=== PATIENT | female | born 1930 | race African-American/Black ===

== ENCOUNTER 2019-08-23 16:56 | Inpatient (IN) | payer OTHER ==
[~2019-08-23] VITALS: Ht 162.6 cm; Wt 54.1 kg
--- NOTE | ~2019-08-23 | HC ---
[facility] [place] [address] CONSULTATION Name: TRENTON LOPEZ Room #: 245-P ADM IN M.R.#: [id number] Admission: 08/23/19 Attend Phys: Rob Gabriel MD Discharge: Date of : [birth year] Report #: [id number] THIS REPORT FOR: //name// CC: Rob Gallegoskjaiden REASON FOR CONSULTATION: ESRD. REASON FOR THE PRESENTATION: Post arrest. HISTORY OF PRESENT ILLNESS: Those were obtained from the chart. The patient is currently intubated. Limited history due to her current mental status. She is an 88-year-old with end-stage renal disease, maintained on hemodialysis. She is known to have hypertension, coronary artery disease. She is status post pacemaker. She is also known to have chronic ulcers on her lower extremities. She presented from [facility] post-cardiac arrest for 45 minutes. Nursing staff initiated CPR. When the EMS arrived, she was in V-fib, shock was initiated and CPR was continued. Downtime was reported to be 45 minutes. She is currently intubated. I was asked to evaluate her dialysis need. PAST MEDICAL HISTORY: 1. End-stage renal disease. 2. Coronary artery disease. 3. Gout. 4. Post pacemaker. 5. Seizure disorder. Those were obtained from medical records. 6. Cognitive deficit. 7. Chronic ulcers on the lower extremities. REVIEW OF SYSTEMS: Unobtainable given the patient's current mental status. FAMILY HISTORY: Unobtainable given the patient's current mental status. PAST SURGICAL HISTORY: Right AV fistula; otherwise, unobtainable given the patient's current mental status. ALLERGIES: NUMEROUS ALLERGIES LISTED INCLUDING PENICILLIN. REST IS LISTED IN THE MEDICAL CHART. GROUP HOME MEDICATIONS: 1. Losartan. 2. Aspirin. 3. Keppra. 4. Sensipar. 5. Metoprolol. PHYSICAL EXAMINATION: [facility] [address] [address] CONSULTATION Name: TRENTON LOPEZ Room #: 245-P ADM IN ..#: [id number] Admission: 08/23/19 Attend Phys: Rob Gabriel MD Discharge: Date of : [birth year] Report #: [id number] GENERAL: The patient is currently intubated and sedated. VITAL SIGNS: Blood pressure is 111/49. HEAD AND NECK: ET tube in place. CHEST: Decreased air entry bilaterally. CARDIOVASCULAR: No rub detected. ABDOMEN: Soft, nontender. LOWER EXTREMITIES: Chronic edema. I did not examine her ulcers or wounds. LABORATORY DATA: Reviewed. White blood cell count is 11.2. This was 16,000 yesterday. Sodium is 141, potassium is 4.4, BUN is 26, creatinine is 3.9. Troponin is 2.003. Chest x-ray was consistent with interstitial pulmonary edema with a moderate size pneumothorax. IMPRESSION AND PLAN: 1. End-stage renal disease. 2. Post-cardiac arrest. 3. Pneumothorax. 4. Pacemaker. 5. From the renal perspective, the patient is well dialyzed and she received her dialysis yesterday. Next dialysis will be done tomorrow. 6. Cardiac arrest care. 7. Pulmonary following regarding her pneumothorax and her intubation status 8. Seizure disorder. 9. Overall, very grim prognosis. We will continue to follow. By: [id number] Joyce Rodriguez MD /nt
[2019-08-23 16:58] VITALS: BP 212/97
[2019-08-23 17:31] LABS: HCO3 23.1 mmol/L (22.0-26.0); PCO2 36.4 mmHg (35.0-45.0); PO2 259.3 mmHg (80.0-100.0); pH 7.421 (7.360-7.450); sO2 99.6 % (92.0-98.0)
[2019-08-23 18:24] LABS: HEMOGLOBIN 10.4 gm/dL (12.0-15.0); MCH 27.6 pg (26.0-34.0); MCHC 31.6 g/dL (28.0-37.0); MCV 87.5 fL (80.0-100.0); PLATELET COUNT 203 thou/uL (150-400); RBC 3.77 mil/uL (4.20-5.00); RDW 18.3 % (10.5-14.5)
[2019-08-23 18:38] LABS: CALCIUM 8.9 mg/dL (8.5-10.1); CREATININE 3.3 mg/dL (0.6-1.0); POTASSIUM 3.7 mmol/L (3.5-5.1)
[2019-08-23 18:48] LABS: ALBUMIN 2.7 g/dL (3.4-5.0); DIRECT BILIRUBIN 0.1 mg/dL (<0.1-0.2); TOTAL BILIRUBIN 0.6 mg/dL (<0.1-1.0); TOTAL PROTEIN 6.5 g/dL (6.4-8.2)
[2019-08-23 18:49] LABS: TROPONIN-I 0.83 ng/mL (<0.06)
--- NOTE | 2019-08-23 18:51 | NUR ---
VASCULAR ACCESS CONSULTED FOR PICC, PT IS DIALYSIS PT SO CVAD MORE APPROPRIATE. DISCUSSED WITH DR ADAIR PT HAS R DIALYSIS FISTULA AND LEFT PACEMEKER. CENTRAL LINE NEEDED POST CODE, LEFT IJ WAS WIDELY PATENT WITH USG. 6FR 25CM JACC INSERTED TO 6CM EXTERNAL STAT CXR DONE SHOWED CURLED GOING UP INTO JUGULAR. POWER FLUSHED AND REPOSITIONED. 2ND CXR SHOWS IN JUNCTION OF INNOMINATE VEIN AND SVC. RELEASED FOR IMMEDIATE USE BUT RECOMMENDED FOR IR TO POSIBLY REPLACE UNDER FLOURO IN AM TO DR NAQVI. LABS DRAWN
[2019-08-23 19:00] LABS: APTT 32.2 Seconds (24.5-32.8); INR 1.3; PROTIME 12.9 Seconds (9.3-11.4)
[2019-08-23 19:15] VITALS: BP 148/72
[2019-08-23 19:22] LABS: ABSOLUTE NEUTROPHILS 14.7 thou/uL (1.4-8.2); BURR CELLS FEW
[2019-08-23 19:23] LABS: ANISOCYTOSIS 2+; PLATELET ESTIMATE NORMAL; POIKILOCYTOSIS 1+
[2019-08-24 01:36] VITALS: BP 152/68
[2019-08-24 02:01] VITALS: BP 168/55
[2019-08-24 04:01] VITALS: BP 115/51
[2019-08-24 05:01] VITALS: BP 112/49
[2019-08-24] MEDS ORDERED: ALLOPURINOL 10100 M3 PO (05:26)
[2019-08-24] MEDS ORDERED: ASPIR 8181 M1 PO (05:27)
[2019-08-24] MEDS ORDERED: SENSIPAR 30 MG30 M1 PO (05:30)
[2019-08-24] MEDS ORDERED: PLAVIX 75 MG TA75 MG PO (05:33)
[2019-08-24] MEDS ORDERED: COZAAR 25 MG TA25 M2 PO (05:35)
[2019-08-24] MEDS ORDERED: KEPPRA250 MG PO (05:36)
[2019-08-24] MEDS ORDERED: LIDOCAINE 4% K1 EACH TOP (05:38)
[2019-08-24] MEDS ORDERED: TOPROL XL100 MG PO (05:39)
[2019-08-24] MEDS ORDERED: NEPHRO-VITE RX1 TA1 PO (05:40)
[2019-08-24] MEDS ORDERED: AKWA TEARS EYE15 ML EA. EYE (05:42)
[2019-08-24] MEDS ORDERED: RENVELA0.8 GM PO (05:43)
[2019-08-24] MEDS ORDERED: TYLENOL325 MG PO (05:45)
--- NOTE | 2019-08-24 05:46 | NUR ---
Pt is a [facility] that was nonresponsive and was found pulseless/slumping in her W/C, for possibly as long as 45 minutes. She was coded, intubated by EMS and brought to [facility], where family asked why she was intubated. Paperwork was retrieved that showed pt should have been considered a DNR, so hypothermia was stopped before it was started. Pt is nonresponsive, she does open her eyes, but does not track and there is NO corneal reflex, right pupil is sluggish and the left is cloudy with acataract noted. Her extremities are flaccid, she has not required restraints and is not on any sedation. Monitor reads 50-75% V-Paced, PAC's/BBB, mild HTN at times, afebrile. Lungs are coarse, on ventilator, was tachypneic earlier when the 7.0 ETT was kinking, RT remedied this, RR now at 16, good sats on 40% Bilateral great toes have gauze dressings for old, no pressure areas of concern. Case mgmt may need to discuss DPOA with family, there are copies of two different forms, with two different individuals on them.
[2019-08-24 06:38] LABS: HEMATOCRIT 30.9 % (37.0-47.0); HEMOGLOBIN 9.8 gm/dL (12.0-15.0); MCH 27.7 pg (26.0-34.0); MCHC 31.7 g/dL (28.0-37.0); MCV 87.3 fL (80.0-100.0); RBC 3.53 mil/uL (4.20-5.00); RDW 18.1 % (10.5-14.5); WBC 11.2 thou/uL (4.0-11.0)
[2019-08-24 06:53] LABS: CALCIUM 9.1 mg/dL (8.5-10.1); CREATININE 3.9 mg/dL (0.6-1.0); POTASSIUM 4.4 mmol/L (3.5-5.1)
--- NOTE | 2019-08-24 07:54 | EKG ---
[address] [place] [address] ELECTROCARDIOGRAM REPORT Name: TRENTON LOPEZ Room #: 245-P ADM IN M.R.#: [id number] Admission: 08/23/19 Attend Phys: Rob Gabriel MD Discharge: Date of : [birth year] Report #: [id number] THIS REPORT FOR: //name// [facility] ED Test Date: 2019-08-23 Test Time: 17:01:18 Pat Name: TRENTON LOPEZ Department: Room: [facility] Gender: F Finance Clerk: SILVINO : 1930 Requested By: Sri Arias Order Number: [id number] MD: Sha Mohan Measurements Intervals Ono Rate: 86 P: 157 SD: 70 QRS: -76 QRSD: 140 T: 79 QT: 418 QTc: 500 Interpretive Statements Sinus rhythm Ventricular bigeminy LVH with IVCD and secondary repol abnrm No previous ECG available for comparison Electronically Signed On 08-24-2019 7:54:10 SENIOR TRAINING SPECIALIST by Sha Mohan [email or web address] <ELECTRONICALLY SIGNED> By: Sha Mohan MD 08/24/19 0754 00 00 Sha Mohan MD /[place]
--- NOTE | 2019-08-24 09:13 | NUR ---
WOUND CARE CONSULT BILAT GREAT TOE ULCERS, DRY ESCHAR PRESENT BOTH GREAT TOES, L ENTIRE GREAT TOE ESCHAR, LESS ON RIGHT GREAT TOE, NO EDEMA, FEET COOL TO TOUCH BILAT, FAINT PULSES, DISCUSSED CARE W/ IRRIGATIONIST, POSSIBLE PALLIATIVE CARE RECOMMENDATIONS; IF FAMILY AGREES TO PALLIATIVE CARE ONLY SUGGEST PAINTING BILAT TOE ULCERS W/ BETADINE, IF AGGRESSIVE TX SOUGHT SUGGEST CONSULT TO WOUND DR FOR VASCULAR STUDIES, ETC. IRRIGATIONIST AWARE
--- NOTE | 2019-08-24 09:40 | NUR ---
GUANACO KEYS,(LISTED DPOA),CALLED INTO UNIT, ASKING US TO LOOK FOR PT'S PURSE.NO PURSE IN PT'S ROOM OR DOCUMENTED ON ADMISSION OF PT.CALLED # LISTED, JUST RANG.WILL WAIT FOR RETURN PHONE CALL FROM HIM TO INFORM.--VW
--- NOTE | 2019-08-24 09:42 | 2DMMODE ---
[facility] [place] [address] [place] [address] 2 D/M-MODE ECHOCARDIOGRAM Name: TRENTON LOPEZ Room #: 245-P ADM IN M.R.#: [id number] Admission: 08/23/19 Attend Phys: Rob Gabriel MD Discharge: Date of : [birth year] Report #: [id number] THIS REPORT FOR: //name// APPROVED REPORT Study performed: 08/24/2019 08:14:07 EXAM: Comprehensive 2D, Doppler, and color-flow Echocardiogram Patient Location: ICU Room #: [facility] Status: routine BSA: 1.57 HR: 87 bpm BP: 163/47 mmHg Rhythm: Pacemaker Other Information Study Quality: Good Indications Pacemaker CAD Hypertension/HDD S^P Cardiac arrest 2D Dimensions RVDd: 44.58 mm IVSd: 16.44 (7-11mm) LVOT Diam: 19.52 (18-24mm) LVDd: 51.84 mm PWd: 16.25 (7-11mm) Ascending Ao: 27.14 (22-36mm) LVDs: 41.68 (25-40mm) Aortic Root: 26.26 mm IVC: 21.00 mm Volumes Left Atrial Volume (Systole) Single Plane 4CH: 103.15 mL Single Plane 2CH: 77.13 mL LA ESV Index: 64.00 mL/m2 Pulmonary Valve PV Peak Jun.: 1.41 m/s PV Peak Gr.: 7.95 mmHg Tricuspid Valve TR Peak Jun.: 2.96 m/s TR Peak Gr.: 35.25 mmHg PA Pressure: 50.00 mmHg [facility] [address] [place] [address] 2 D/M-MODE ECHOCARDIOGRAM Name: TRENTON LOPEZ Room #: 245-P [facility] IN [facility].#: [id number] Admission: 08/23/19 Attend Phys: Rob Gabriel MD Discharge: Date of : [birth year] Report #: [id number] Left Ventricle The left ventricle is normal size. There is global hypokinesis of the left ventricle. Moderate concentric left ventricular hypertrophy. Left ventricular ejection fraction is severely decreased. LVEF is 30%. This study is not technically sufficient to allow evaluation of the LV diastolic function. Right Ventricle Right ventricle is dilated. Right ventricle is hypokinetic. Pacemaker lead is present in the right ventricle. Atria Left atrium is dilated. Right atrium is dilated. Aortic Valve The aortic valve is normal in structure. The Aortic valve is sclerotic. No aortic regurgitation is present. There is no aortic valvular stenosis. Mitral Valve The mitral valve is normal in structure. Trace mitral regurgitation. No evidence of mitral valve stenosis. Tricuspid Valve The tricuspid valve is normal in structure. There is trace to mild tricuspid regurgitation. Estimated PAP 50 mmHg. There is moderate pulmonary hypertension. Pulmonic Valve The pulmonary valve is normal in structure. Mild pulmonic regurgitation. Great Vessels The aortic root is normal in size. The inferior vena cava is dilated with no inspiratory collapse. Pericardium There is no pericardial effusion. <Conclusion> The left ventricle is normal size. Moderate concentric left ventricular hypertrophy. There is global hypokinesis of the left ventricle. LVEF is 30%. This study is not technically sufficient to allow evaluation of the [facility] [address] [place] [address] 2 D/M-MODE ECHOCARDIOGRAM Name: ADALI LOPEZMARY Room #: [facility] ADM IN M.R.#: [id number] Admission: 08/23/19 Attend Phys: Rob Gabriel MD Discharge: Date of : [birth year] Report #: [id number] LV diastolic function. Right ventricle is dilated. Right ventricle is hypokinetic. Left atrium is dilated. Right atrium is dilated. The aortic valve is normal in structure. The Aortic valve is sclerotic. There is no aortic valvular stenosis. Trace mitral regurgitation. There is trace to mild tricuspid regurgitation. Estimated PAP 50 mmHg. There is moderate pulmonary hypertension. Mild pulmonic regurgitation. The aortic root is normal in size. There is no pericardial effusion. <ELECTRONICALLY SIGNED> By: Carlton Cruz MD, [facility] 08/24/19 0941 [id number] [id number] Carlton Cruz MD, FACC /INF
[2019-08-24 10:10] VITALS: BP 142/53
--- NOTE | 2019-08-24 14:37 | NUR ---
ASSUMED PT CARE AT 0700. PT WAS UNRESPONSIVE AND UNAROUSABLE TO PAINFUL STIMULI, PT'S SON CHRYSTAL AND HIS WERE IN THE ROOM WELL PT'S SISTER HARLAN. AT APPROX 1100AM, THEY WERE LEANING TOWARDS WITHDRAWING CARE AND WANTED TO KNOW IF THERE WAS A TEST THAT COULD BE DONE TO FIND OUT IF THERE IS STILL BRAIN ACTIVITY. DR GUTIERREZ WAS PAGED AT THIS TIME. AT AROUND 1155, I WENT IN TO SUCTION THE PT AND SHE WENT INTO V TACH/VFIB WITH HER HR OF 245. PT WAS ASSESSED AND WAS FOUND PULSELESS. PT TIME OF WAS [address] HARRIS RT EXTUBATED PT. PACKET COMPLETED AND SIGNED BY APPROPRIATE PARTIES, COPY IN CHART AND ORIGINAL WAS SENT WITH SECURITY ALONGSIDE PT'S BELONGINGS. PT'S BODY WAS TAKEN OFF THE UNIT AT APROXIMATELY 0245.
== END 2019-08-24 14:50 | DRG 208 ==
LOC: ER 16:56 → ICU 19:08 → EROBS 19:08 → ICU 19:15
PROVIDERS: Emergency Medicine; Nurse Practitioner Family; ADMIT Hospitalist
PROC: 5A1935Z Respiratory Ventilation, Less than 24 Consecutive Hours (ICD-10-PCS; principal; 2019-08-23)
PROC: 0BH17EZ Insertion of Endotracheal Airway into Trachea, Via Natural or Artificial Opening (ICD-10-PCS; principal; 2019-08-23)
DX: J96.00 Acute respiratory failure, unspecified whether with hypoxia or hypercapnia (principal); J93.9 Pneumothorax, unspecified; I49.01 Ventricular fibrillation; I25.10 Atherosclerotic heart disease of native coronary artery without angina pectoris; M10.9 Gout, unspecified; I10 Essential (primary) hypertension; E78.5 Hyperlipidemia, unspecified; F41.9 Anxiety disorder, unspecified; G40.909 Epilepsy, unspecified, not intractable, without status epilepticus; Z88.0 Allergy status to penicillin; Z88.8 Allergy status to other drugs, medicaments and biological substances; Z95.0 Presence of cardiac pacemaker; Z88.6 Allergy status to analgesic agent; Z91.041 Radiographic dye allergy status
CPT/HCPCS: 10203